=== PATIENT | female | born 1980 | race African-American/Black ===

== ENCOUNTER 2018-01-23 14:11 | Outpatient (CLI) | payer MEDICAID ==
--- NOTE | 2018-01-23 16:17 | ULT ---
PELVIC ULTRASOUND: History: Pelvic pain since 2013. Comparison: 06-01-08 Technique: Transabdominal and endovaginal imaging of the pelvis was performed. Ovaries were interroga festus with grayscale, color flow, doppler imaging, and spectral waveform analysis. FINDINGS: The uterus is identified, measuring 10.6 x 5.8 x 6.3 cm. Cluster of complex Nabothian cysts are noted . There are no solid masses within the uterus. Endometrium has a homogeneous echotexture measuring 1. 1 cm on the transabdominal images and 0.7 cm on the endovaginal images. Left and right ovary have a normal echotexture. Right ovary measures 1.5 x 1.5 x 2.2 cm. Left ovary m easures 1.3 x 2.2 x 2.3 cm. No free fluid. Ovarian doppler: Vascular flow to the left and right ovary. IMPRESSION: Complex Nabothian cyst, otherwise, unremarkable pelvic ultrasound. POS: [facility]
== END 2018-01-23 14:12 | disposition home or self-care (01) ==
LOC: ULT 14:11
PROVIDERS: ATTEND Family Medicine
DX: R10.2 Pelvic and perineal pain (principal); R93.8 Abnormal findings on diagnostic imaging of other specified body structures; N88.8 Other specified noninflammatory disorders of cervix uteri
CPT/HCPCS: 76856